=== PATIENT | female | born 1990 | race Caucasian/White ===

== ENCOUNTER 2021-02-14 15:42 | Inpatient (IN) | payer OTHER, MEDICAID ==
[~2021-02-14] VITALS: Ht 177.8 cm; Wt 64.0 kg
--- NOTE | ~2021-02-14 | CON ---
[facility] [address] [place] [address] CONSULTATION Name: AMANDA NAVA Room: [place] [address] ADM IN M.R.#: [id number] Admission: 02/14/21 Attend Phys: Madison Rodrigues MD Discharge: Date of : 86 Report #: [id number] THIS REPORT FOR: cc: [facility] - Clinic physician unknown [facility] - Clinic physician unknown Elijah Klein MD ~ DATE OF CONSULTATION: 02/14/2021 HISTORY OF PRESENT ILLNESS: This is a 31-year-old female patient who was evaluated by me for visual disturbances. I talked to the nurse practitioner who saw this patient in the Emergency Room and I talked to the patient afterward. I also gave a call to the patient's neuroradiologist who read the patient's MRI. The patient said that she had COVID earlier this month. She had flu-like symptoms, but did not require any oxygen. Two weeks ago, she has visual disturbances. After that, history is not very clear. The history I get is that the patient's vision is bad, but is stable since last 2 weeks. She went to an form press operator who said there was some swelling. I am not sure what does that mean. She was given some drop and I cannot talk to that form press operator at this time. She had a workup. First she had a CT of the head and neck, which showed an infarct, but no particular blockage. I recommended an MRI, which was done and I reviewed the films and talked to the radiologist. It does show a subacute stroke in the left occipital area, which is reasonably good sized stroke. This will be what will be considered a moderate sized stroke. REVIEW OF SYSTEMS: A 14-point review of system was carried out. She does have a history of migraine. Once she was even admitted with the migraine long time ago. Presently she is very upset, but is not having any migraine headache. She is upset because of the family situation and she does not want to stay in the hospital because of her children. Otherwise, there is not any history of diabetes or hypertension and her lab looks fairly unremarkable. She does have posttraumatic stress disorder, generalized anxiety disorder and a history of anemia as per record, but her hemoglobin is 12.5 here. This was a relevant 14-point review of systems. PAST MEDICAL HISTORY: Negative for any stroke, but is positive for migraine. FAMILY HISTORY: Unremarkable. SOCIAL HISTORY: Complicated. She said she has children to take care of and she need to talk to significant other. It might be mentioned she is not on any control pills or any contraception, [place] [address] CONSULTATION Name: AMANDA NAVA Room: [address] IN [facility].#: [id number] Admission: 02/14/21 Attend Phys: Madison Rodrigues MD Discharge: Date of : 86 Report #: [id number]. PHYSICAL EXAMINATION: NEUROMUSCULAR: The patient's examination indicate she was upset and she was crying, but mentation and speech looks preserved, but cranial nerve examination shows a very dense right hemianopsia, which will be consistent with her stroke. I could not have a very good look at the patient's fundus and we need to talk to the form press operator, but otherwise neuromuscular examination was symmetrical and there does not appear to be any ataxia. I did make an effort to look at the fundus. VITAL SIGNS: Blood pressure is 115/70, respiration is 14, pulse is 75, temperature is 98. LABORATORY AND DIAGNOSTIC DATA: Her lab looks fairly benign and even her sed rate is normal. Lipid profile was not done yet and the test is negative. IMPRESSION: Left occipital lobe stroke, which appeared to be subacute. That will correlate with the patient's symptoms and it can be COVID related stroke or it can be migraine related stroke if we find a patent foramen ovale or it may be some other undetermined etiology. RECOMMENDATIONS: I discussed with the patient that the recommendation in her circumstances is staying in the hospital and getting further workup done. She is very upset about it because she has to take care of the children. I told her that if she needs to go home, she has to sign AMA. She says she is going to talk to significant other. If she decides to sign AMA, I will suggest putting her on a combination of 81 mg aspirin and Plavix after giving her a loading dose. I discussed the potential side effect of aspirin and Plavix with her and alternatives in that regard. I told her that she needs to avoid and she needs to take folic acid along with it. A negative test does not exclude the and she is aware of it and she is aware of teratogenic side effects of both aspirin and the Plavix and that she needs to take folic acid along with it. She will need multiple testing. The first testing she will need is an echocardiogram with bubble study to look for patent foramen ovale. She needs 30 days event monitor. She needs a lipid profile. She may need some further workup depending upon that, but ideal thing is she stays here but if she leaves [place] she should get it done as soon as possible and she is welcome to come to our office for further workup. Thank you very much for this referral. I just noticed no EKG was done. I will [address] [address] CONSULTATION Name: AMANDA NAVA Room: [address] IN ..#: [id number] Admission: 02/14/21 Attend Phys: Madison Rodrigues MD Discharge: Date of : 86 Report #: [id number] call the Emergency Room and tell them that they do an EKG on her before she leaves. By: [id number] [id number] Klein MD /nt
[~2021-02-14 15:42] MED LIST: CIPROFLOXACIN500 M1 PO; HYDROCODON-ACE1 EAC7 PO
[2021-02-14 15:49] VITALS: BP 119/78
[2021-02-14] MEDS ORDERED: EYE DROP15 ML TOP (15:49)
[2021-02-14 17:11] LABS: ABSOLUTE BASOPHILS 0.1 thou/uL (0.0-0.2); ABSOLUTE LYMPHOCYTES 2.2 thou/uL (0.8-5.3); ABSOLUTE MONOCYTES 0.7 thou/uL (0.0-1.2); ABSOLUTE NEUTROPHILS 4.1 thou/uL (1.6-8.1); BASOPHILS 0.9 %; EOSINOPHILS 0.6 %; HEMOGLOBIN 12.5 gm/dL (12.0-15.0); LYMPHOCYTES 31.5 %; MCH 27.3 pg (26.0-34.0); MCHC 32.8 g/dL (28.0-37.0); MCV 83.3 fL (80.0-100.0); MONOCYTES 9.8 %; NUCLEATED RBCS 0 /100WBC; PLATELET COUNT* 262 thou/uL (150-400); POLYS 57.2 %; RBC 4.57 mil/uL (4.20-5.00); RDW-CV 14.7 % (10.5-14.5); WBC 7.1 thou/uL (4.0-11.0)
[2021-02-14 17:19] LABS: CALCIUM 9.3 mg/dL (8.5-10.1); CREATININE 0.7 mg/dL (0.6-1.3); POTASSIUM 4.2 mmol/L (3.5-5.1)
[2021-02-14 18:54] LABS: APTT 27.6 Seconds (25.0-31.3); INR 1.1; PROTIME 11.6 Seconds (9.20-11.50)
[2021-02-15 05:03] VITALS: BP 116/67
[2021-02-15 09:56] LABS: CHOLESTEROL 194 mg/dL (<200); HDL CHOLESTEROL 39 mg/dL (>40); LDL CHOLESTEROL 121 mg/dL (<100); TRIGLYCERIDE 170 mg/dL (<150); VLDL 34 mg/dL (<40)
[2021-02-15 09:59] LABS: SERUM ASSESSMENT Clear
--- NOTE | 2021-02-15 10:43 | EKG ---
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
--- NOTE | 2021-02-15 12:42 | NUR ---
PT GIVEN LUNCH.
--- NOTE | 2021-02-15 13:11 | NUR ---
PT IN ROOM EVALUATING PT.
[2021-02-15] MEDS ORDERED: BAYER CHEWABLE81 MG PO (15:57)
[2021-02-15] MEDS ORDERED: LIPITOR40 MG PO (15:57)
[2021-02-15] MEDS ORDERED: FOLIC ACID1 MG PO (15:57)
[2021-02-15] MEDS ORDERED: CLOPIDOGREL75 MG PO (15:57)
--- NOTE | 2021-02-15 16:05 | 2DMMODE ---
[place] [address] 2 D/M-MODE ECHOCARDIOGRAM Name: AMANDA NAVA Room: [address] IN [place]#: [id number] Admission: 02/14/21 Attend Phys: Madison Rodrigues, Discharge: Date of : 86 Date of Service: 02/15/21 1605 Report #: [id number] THIS REPORT FOR: cc: [facility] - Clinic physician unknown [facility] - Clinic physician unknown Kendrick Nieto MD [facility] ~ APPROVED REPORT Study performed: 02/15/2021 10:23:10 EXAM: Comprehensive 2D, Doppler, and color-flow Echocardiogram Patient Location: In-Patient Room #: ER Status: routine BSA: 1.80 HR: 60 bpm BP: 116/67 mmHg Rhythm: NSR Other Information Study Quality: Good Indications CVA/TIA Echo Enhancing Agent Indication: Rule out Shunt Agent(s) / Amount(s) Used: Agitated Saline 10 cc 2D Dimensions IVSd: 10.59 (7-11mm) LVOT Diam: 21.75 (18-24mm) LVDd: 46.96 mm PWd: 9.89 (7-11mm) Ascending Ao: 29.73 (22-36mm) LVDs: 31.35 (25-40mm) Aortic Root: 32.09 mm Volumes Left Atrial Volume (Systole) LA ESV Index: 22.10 mL/m2 Aortic Valve AoV Peak Leonard.: 1.09 m/s AO Peak Gr.: 4.73 mmHg LVOT Max P.38 mmHg AO Mean Gr.: 2.31 mmHg LVOT Mean [place]48 [place] [address] 2 D/M-MODE ECHOCARDIOGRAM Name: AMANDA NAVA Room: [address] IN ..#: [id number] Admission: 02/14/21 Attend Phys: Madison Rodrigues, Discharge: Date of : 86 Date of Service: 02/15/21 1605 Report #: [id number] LVOT Max V: 0.92 m/s AO V2 VTI: 18.06 cm LVOT Mean V: 0.55 m/s PB (VTI): 4.00 cm2 LVOT V1 VTI: 19.43 cm Mitral Valve E/A Ratio: 1.57 MV Decel. Time: 299.61 ms MV E Max Leonard.: 0.72 m/s MV PHT: 86.89 ms MVA (PHT): 2.53 cm2 TDI E/Lateral E': 4.00 E/Medial E': 4.80 Medial E' Leonard.: 0.15 m/s Lateral E' Leonard.: 0.18 m/s Pulmonary Valve PV Peak Leonard.: 0.82 m/s PV Peak Gr.: 2.68 mmHg Tricuspid Valve RAP Estimate: 5.00 mmHg TR Peak Gr.: 13.81 mmHg RVSP: 18.00 mmHg PA Pressure: 18.00 mmHg Left Ventricle The left ventricle is normal size. There is normal LV segmental wall motion. There is normal left ventricular wall thickness. Left ventricular systolic function is normal. LVEF is 55-60%. Left ventricular filling pattern is normal for age. Right Ventricle The right ventricle is normal size. The right ventricular systolic function is normal. Atria The left atrium size is normal. Injection of bubbles documented an interatrial shunt. The right atrium size is normal. Aortic Valve The aortic valve is normal in structure. No aortic regurgitation is present. There is no aortic valvular stenosis. Mitral Valve The mitral valve is normal in structure. Trace mitral regurgitation. No evidence [place] [address] 2 D/M-MODE ECHOCARDIOGRAM Name: DHAVALKINGA MENDEZSATHISH Miller Room: [address] IN [facility]#: [id number] Admission: 02/14/21 Attend Phys: Madison Rodrigues, Discharge: Date of : 86 Date of Service: 02/15/21 1605 Report #: [id number] Tricuspid Valve The tricuspid valve is normal in structure. Trace tricuspid regurgitation. No pulmonary hypertension. Pulmonic Valve The pulmonary valve is normal in structure. Trace pulmonic regurgitation. Great Vessels The aortic root is normal in size. IVC is normal in size and collapses >50% with inspiration. Pericardium There is no pericardial effusion. <Conclusion> The left ventricle is normal size. There is normal left ventricular wall thickness. Left ventricular systolic function is normal. LVEF is 55-60%. Left ventricular filling pattern is normal for age. There is normal LV segmental wall motion. Trace mitral regurgitation. Trace tricuspid regurgitation. No pulmonary hypertension. Trace pulmonic regurgitation. Injection of bubbles documented an interatrial shunt. <ELECTRONICALLY SIGNED> By: Kendrick Nieto MD, FACC 02/15/21 1605 1605 1605 Kendrick Nieto MD, FACC /INF
[2021-02-15 16:19] VITALS: BP 100/61
[2021-02-15 16:44] VITALS: BP 100/61
--- NOTE | 2021-02-15 16:45 | NUR ---
PT GIVEN INPATIENT DISCHARGE INSTRUCTIONS. PT FAMILY IS DRIVING PT HOME. PT LEFT WITH A STEADY GAIT.
[2021-02-16 07:09] LABS: GLYCOHEMOGLOBIN (HGB A1C) 5.2 % (4.8-5.6)
[2021-02-17 14:07] LABS: ANA INTERPRETATION Negative (())
== END 2021-02-15 16:45 | disposition home or self-care (01) | DRG 66 ==
LOC: M.ERS 15:42 → M.TBA-ER 22:56
PROVIDERS: Nurse Practitioner Psychiatric/Mental Health; Psychiatry & Neurology Neuromuscular Medicine; ADMIT Internal Medicine; ATTEND Internal Medicine
DX: I63.9 Cerebral infarction, unspecified (principal); H53.47 Heteronymous bilateral field defects; Z20.822 Contact with and (suspected) exposure to COVID-19; F31.9 Bipolar disorder, unspecified; F41.1 Generalized anxiety disorder; H54.3 Unqualified visual loss, both eyes; Z90.49 Acquired absence of other specified parts of digestive tract

== ENCOUNTER 2021-03-03 17:42 | Inpatient (IN) | payer OTHER, MEDICAID ==
[~2021-03-03] VITALS: Ht 152.4 cm; Wt 68.9 kg
[~2021-03-03 17:42] MED LIST changes: +BAYER CHEWABLE81 MG PO; +CLOPIDOGREL75 MG PO; +EYE DROP15 ML TOP; +FOLIC ACID1 MG PO; +LIPITOR40 MG PO
[2021-03-03 17:48] VITALS: BP 134/74
[2021-03-03 18:21] LABS: HEMATOCRIT 36.7 % (37.0-47.0); HEMOGLOBIN 12.3 gm/dL (12.0-15.0); MCH 28.3 pg (26.0-34.0); MCHC 33.6 g/dL (28.0-37.0); MCV 84.1 fL (80.0-100.0); MPV 7.7 fl. (7.2-11.1); RBC 4.37 mil/uL (4.20-5.00); RDW-CV 15.1 % (10.5-14.5); WBC 4.6 thou/uL (4.0-11.0)
[2021-03-03 18:27] LABS: CALCIUM 8.9 mg/dL (8.5-10.1); CREATININE 0.8 mg/dL (0.6-1.3); POTASSIUM 3.2 mmol/L (3.5-5.1)
[2021-03-03 18:32] LABS: ALBUMIN 4.5 g/dL (3.4-5.0); TOTAL BILIRUBIN 0.4 mg/dL (<0.1-1.0); TOTAL PROTEIN 8.1 g/dL (6.4-8.2)
[2021-03-03 19:28] LABS: URINE BILIRUBIN NEGATIVE (Negative); URINE BLOOD 3+ (Negative); URINE COLOR YELLOW; URINE GLUCOSE-RANDOM NEGATIVE (Negative); URINE KETONES NEGATIVE (Negative); URINE LEUKOCYTES NEGATIVE (Negative); URINE NITRITE NEGATIVE (Negative); URINE PROTEIN NEGATIVE (Negative); URINE SPECIFIC GRAVITY >= 1.030 (1.005-1.030); URINE UROBILINOGEN 0.2 E.U./dl (0.2-1.0)
[2021-03-03 19:30] LABS: URINE CLARITY HAZY
[2021-03-03 19:37] LABS: BACTERIA None Seen /HPF (None Seen); CASTS None Seen /LPF (None Seen); SQUAMOUS >10 Many /LPF (0-3); URINE RBC 0-2 Rare /HPF (0-2); URINE WBC 0-5 Rare /HPF (0-5)
[2021-03-03 19:38] LABS: CRYSTALS None Seen /LPF (None Seen)
[2021-03-03 21:18] LABS: AMP/METHAMP Negative (Negative); BARBITURATES Negative (Negative); BENZODIAZEPINES Negative (Negative); COCAINE Negative (Negative); METHADONE Negative (Negative); OPIATES Negative (Negative); PCP Negative (Negative); THC POSITIVE (Negative)
[2021-03-03 23:30] VITALS: BP 98/62
[2021-03-04] VITALS (16 sets, daily range): BP systolic 101–131; BP diastolic 47–75
--- NOTE | 2021-03-04 09:14 | NUR ---
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
--- NOTE | 2021-03-04 10:57 | EKG ---
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
--- NOTE | 2021-03-04 13:41 | NUR ---
Pt is A&O. Resides at home with SO and kids. Independent. No DME. No hx of HH or SNF. Goal is home at dc. MRI today. Cards and neuro following. Anticipate dc soon, no needs anticipated.
--- NOTE | 2021-03-04 15:43 | TEE ---
[place] [address] TRANSESOPHAGEAL ECHOCARDIOGRAM Name: AMANDA NAVA Room: [address] IN [facility]#: [id number] Admission: 03/04/21 Attend Phys: Lonny Yanes, Discharge: Date of : 86 Date of Service: 03/04/21 1543 Report #: [id number] THIS REPORT FOR: cc: Physician not on staff Physician not on staff Mikel So MD [facility] ~ APPROVED REPORT Study performed: 03/04/2021 14:13:39 EXAM: Transesophageal Echocardiogram Patient Location: In-Patient Room #: [facility] Status: routine BSA: 1.68 HR: 89 bpm BP: 121/71 mmHg Rhythm: NSR Other Information Study Quality: Good Indications CVA/TIA Echo Enhancing Agent Indication: Rule out Shunt Agent(s) / Amount(s) Used: Agitated Saline cc Procedure After obtaining informed consent, patient underwent transesophageal echo in the [facility]. Type of Sedation : Conscious Sedation Sedation was administered by Alix Martines RN. Sedation start time: 1442 Case end Time: 1507 Sedation was achieved intravenously with: Versed (8) Fentanyl (50) Transesophageal probe was inserted and advanced into esophagus without difficulty by Mikel So MD, FACC. Echo enhancement indication: R/O Septal defect. Echo enhancement agent administered: Agitated Saline The SAEED was performed without complications. Throughout the procedure, the blood pressure, pulse oximetry, cardiac rhythm, and rate were monitored. [place] [id number] TRANSESOPHAGEAL ECHOCARDIOGRAM Name: AMANDA NAVA Room: [address]#: [id number] Admission: 03/04/21 Attend Phys: Lonny Yanes, Discharge: Date of : 86 Date of Service: 03/04/21 1543 Report #: [id number] The patient tolerated the procedure without adverse effects. Recovery from conscious sedation was uneventful and vital signs were stable. Left Ventricle The left ventricle is normal size. There is normal LV segmental wall motion. There is normal left ventricular wall thickness. Left ventricular systolic function is normal. The left ventricular ejection fraction is within the normal range. LVEF is 60-65%. Right Ventricle The right ventricle is normal size. The right ventricular systolic function is normal. Atria The left atrium size is normal. No thrombus is visualized in the left atrium or appendage. Minimal bubbles were noted in the left atrium following IV administration of agitated saline, suggesting a small patent PFO. The right atrium size is normal. Aortic Valve The aortic valve is normal in structure. No aortic regurgitation is present. There is no aortic valvular stenosis. Mitral Valve The mitral valve is normal in structure. Trace mitral regurgitation. No evidence of mitral valve stenosis. Tricuspid Valve The tricuspid valve is normal in structure. There is no tricuspid valve regurgitation noted. Pulmonic Valve The pulmonary valve is normal in structure. There is no pulmonic valvular regurgitation. Great Vessels The aortic root is normal in size. Pericardium There is no pericardial effusion. <Conclusion> LVEF is 60-65%. Trace mitral regurgitation. Minimal bubbles were noted in the left atrium following IV [facility] [address] [place] [address] TRANSESOPHAGEAL ECHOCARDIOGRAM Name: AMANDA NAVA Room: [address] IN ..#: [id number] Admission: 03/04/21 Attend Phys: Lonny Yanes, Discharge: Date of : 86 Date of Service: 03/04/211542 Report #: [id number] administration of agitated saline, suggesting a small patent PFO. The left atrium size is normal. No thrombus is visualized in the left atrium or appendage. <ELECTRONICALLY SIGNED> By: Mikel So MD, FACC 03/04/211542 42 42 Mikel So MD, FACC /INF
--- NOTE | 2021-03-09 08:41 | CON ---
[facility] [address] [place] [address] CONSULTATION Name: AMANDA NAVA Room: [address] IN [place].#: [id number] Admission: 03/04/21 Attend Phys: Lonny Yanes MD Discharge: 03/04/21 Date of : 86 Report #: [id number] THIS REPORT FOR: cc: Physician not on staff Physician not on staff Elijah Klein MD ~ DATE OF CONSULTATION: 03/04/2021 HISTORY OF PRESENT ILLNESS: This is a 31-year-old female patient whom I have seen in the past. The patient had presented with symptoms suggestive of TIA or stroke. Her MRI had shown what looked like a possible old stroke, but rest of the workup was unremarkable except echocardiogram, which demonstrated a patent foramen ovale. I reviewed the patient's record and it looks like the patient was asked to follow up with the junior media buyer as an outpatient. I do not have any record from that, but the patient said she did see Dr. Nieto's nurse practitioner and she was scheduled to have a SAEED as an outpatient. This patient presented to Emergency Room with nonspecific symptoms. She says left side of the scalp is numb, left face is numb and left arm is having numbness. This is subjective feeling and there is not an objective finding. She does not give any history referable to the cervical spine. She did have a CT angiogram of the head and neck the last time she was here and I suspect it probably looked at her spine at that time. She says her "anxiety is out of control." She was supposed to take medications, but she does not take it because partly she cannot afford it and partly she does not like the way it makes her feel. REVIEW OF SYSTEMS: A 14-point review of systems was carried out. Her test is negative. History I get is very poorly defined. At one time she has told me that she has been to an open hearth laborer and he found a swelling, but I talked to him and he has not found any evidence of any swelling and he just gave her some drop. PAST MEDICAL HISTORY: Positive for patent foramen ovale and on the MRI she appeared to have a stroke. FAMILY HISTORY: Unremarkable. SOCIAL HISTORY: She smokes marijuana. She was advised to stop that last time and she has not done that. PHYSICAL EXAMINATION: NEUROLOGIC: The examination indicates she is alert, responsive, very anxious. Cranial nerve examination: Visual field is difficult to tell in this patient, but otherwise looks unremarkable. Strength, sensation, [place] [address] CONSULTATION Name: DHAVALANDREAAMANDA Room: [address] IN ..#: [id number] Admission: 03/04/21 Attend Phys: Lonny Yanes MD Discharge: 03/04/21 Date of : 86 Report #: [id number] symmetrical. Her reflexes are present. Plantars are mute and they are not upgoing. CARDIAC: Unremarkable. RESPIRATORY: Unremarkable. I had discussed with the emergency room provider last night. I had told them to exclude in this patient and if that is excluded, then they can proceed with MRI and MRA. MRI and MRA was done and that does not appear to be showing any abnormality. Her lesion in the brain is stable. IMPRESSION AND PLAN: Possible stroke secondary to patent foramen ovale. It is difficult to be certain because she is very anxious. Many of the symptoms, including present symptom appeared to be because of anxiety. However, she definitely has a lesion in her brain, which is probably old stroke. From the records, it looks like she was going to be transferred to [facility] yesterday both to get a neurosurgical evaluation to see if it is a tumor or whether we can do any imaging studies like spectroscopy to make sure it is not a tumor and what to do with this patient's patent foramen ovale. Decision is difficult because of anxiety and multiple other symptoms coming up. She is going to see a junior media buyer and we will see what the junior media buyer says. I will suggest a psychiatric consult. She had 2 contrast-enhanced MRIs and I think we should try to limit that in future. Thank you very much for this referral, and I spent more than 50 minutes of time taking care of this patient today and majority was spent counseling and coordinating. <ELECTRONICALLY SIGNED> By: Elijah Klein MD 03/09/21 0841 1258 1505Elijah Klein MD /nt
== END 2021-03-04 20:11 | disposition home or self-care (01) | DRG 65 ==
LOC: M.ERS 17:42 → M.TBA-ER 20:36 → M.2W 20:36
PROVIDERS: Physician Assistant; ADMIT Internal Medicine; ATTEND Internal Medicine
DX: I63.9 Cerebral infarction, unspecified (principal); Q21.1 Atrial septal defect; R20.0 Anesthesia of skin; F41.9 Anxiety disorder, unspecified; E78.5 Hyperlipidemia, unspecified; Z20.822 Contact with and (suspected) exposure to COVID-19; F31.9 Bipolar disorder, unspecified; F43.10 Post-traumatic stress disorder, unspecified; D64.9 Anemia, unspecified; E87.6 Hypokalemia; Z90.49 Acquired absence of other specified parts of digestive tract; Z86.73 Personal history of transient ischemic attack (TIA), and cerebral infarction without residual deficits

== ENCOUNTER → 2021-04-22 | Outpatient (CLI) | payer OTHER, MEDICAID ==
--- NOTE | 2021-04-22 17:01 | CARDNUC ---
[place] [address] CARDIAC NUCLEAR IMAGING REPORT Name: AMANDA NAVA Room: [facility]#: [id number] Admission: 04/22/21 Attend Phys: Kendrick Nieto, Discharge: Date of : 86 Date of Service: 04/22/21 1701 Report #: [id number] THIS REPORT FOR: cc: [facility] - Clinic physician unknown [facility] - Clinic physician unknown Kendrick Nieto MD [facility] ~ APPROVED REPORT Imaging Protocol: Stress Tc-99m/Rest Tc-99m 1 day Study performed: 04/22/2021 14:05:04 Indication: Palpitations Patient Location: Out-Patient Stress Nurse: Cailin Bedoya RN Ht: 5 ft 10 in Wt: 143 lbs BSA: 1.81 m2 BMI: 20.51 Medical History Medical History: PFO, CVA, COVID HYPERLIPIDEMIA Medications: ASA-81, ATORVASTATIN, CLOPIDOGREL Allergies: No known drug allergies Cardiac Risk Factors: Hyperlipidemia Exercise History: Physically active Resting Data Rest SPECT myocardial perfusion imaging was performed in supine position 30 minutes following the intravenous injection of 10.1 mCi of Tc-99m Sestamibi. Time of rest injection: 12:55 The images were gated to evaluate regional wall motion and calculate left ventricular ejection fraction. Administration Route: IV Administration Site: Right AC Pharmacologic Stress Exercise Stress At peak stress, the patient was injected intravenously with 33.4mCi of Tc-99m Sestamibi. Time of stress injection: 14:20 Administration Route: IV Administration Site: [place] [address] CARDIAC NUCLEAR IMAGING REPORT Name: AMANDA NAVA Room: [facility]#: [id number] Admission: 04/22/21 Attend Phys: Kendrick Nieto, Discharge: Date of : 86 Date of Service: 04/22/21 1701 Report #: [id number] Heart Rate at time of stress injection: 168 bpm. Patient continued to exercise for 1.5 minute(s). Gated Stress SPECT was performed 30 minutes after stress injection. The images were gated to evaluate regional wall motion and calculate left ventricular ejection fraction. Prone imaging was performed. Stress Test Details Stress Test: Exercise stress testing was performed using a modified Blaze protocol. HR Max Heart Rate (APMHR): 187 bpm Resting HR: 71 bpm Target HR (85% APMHR): 158 bpm Max HR Achieved: 174 bpm % of APMHR: 93 Recovery HR: 88 bpm BP Resting BP: 110/60 mmHg Max BP: 186/87 mmHg Recovery BP: 115/71 mmHg ECG Resting ECG: Sinus Rhythm Stress ECG: Sinus Tachycardia ST Change: Downsloping ST depression Maximum ST Deviation: 1.5 mm Arrhythmia: None Recovery ECG: Sinus Rhythm Recovery ST Change: Downsloping ST depression Recovery ST Deviation: 1.5 mm Recovery Arrhythmia: None Clinical Reason for Termination: Fatigue Exercise duration: 9 min 01 sec Exercise capacity: 10.17 METs Functional Aerobic Impairment 93% The patient tolerated standard Blaze protocol exercise without significant cardiac symptoms. Stress ECG Conclusion The baseline twelve-lead EKG shows sinus rhythm with nonspecific T wave inversion and ST segment depression mostly in the inferior leads. EKGs obtained during and post exercise show sinus rhythm and sinus tachycardia with persistent nonspecific T wave inversion [place] [address] CARDIAC NUCLEAR IMAGING REPORT Name: AMANDA NAVA Room: [facility]#: [id number] Admission: 04/22/21 Attend Phys: Kendrick Nieto, Discharge: Date of : 86 Date of Service: 04/22/21 1701 Report #: [id number] segment depression in the inferolateral leads. There were no stress-induced arrhythmias. Study Quality Study: Good Artifact: No artifact Study Data At rest, the left ventricular ejection fraction was 62%.. Post stress, the left ventricular ejection was 61%.. TID = 0.93. Perfusion Perfusion images obtained at rest and post exercise stress show uniform uptake of the radioisotope throughout the myocardium. There were no defects to suggest infarct or ischemia. Wall Motion Normal left ventricular wall motion. There is a area of in the segment of the wall which is seen on the stress images as well as the resting images. Nuclear Conclusion ECG Findings: non-diagnostic Clinical Findings: negative for ischemia Nuclear Findings: negative for ischemia Exercise Capacity: normal Left Ventricular Function: normal Risk Study: low Perfusion images show no defect to suggest infarct or ischemia. Left ventricular systolic function appears normal on gated studies. This is a low risk study. <Conclusion> The baseline twelve-lead EKG shows sinus rhythm with nonspecific T wave inversion and ST segment depression mostly in the inferior leads. EKGs obtained during and post exercise show sinus rhythm and sinus tachycardia with persistent nonspecific T wave inversion and ST segment depression in the inferolateral leads. There were no stress-induced arrhythmias. <ELECTRONICALLY SIGNED> By: Kendrick Nieto MD, FACC 04/22/211700 00 00 Kendrick Nieto MD, FACC /INF
== END ==
LOC: M.NUC 03-31 16:31
PROVIDERS: ATTEND Internal Medicine Cardiovascular Disease
DX: R06.00 Dyspnea, unspecified (principal); R00.2 Palpitations; R94.30 Abnormal result of cardiovascular function study, unspecified